=== PATIENT | female | born 1935 | race Caucasian/White ===

== ENCOUNTER 2017-01-06 12:11 | Observation (INO) | payer MEDICARE ==
--- OUTSIDE RECORDS SUMMARY | 2017-01-06 12:14 | XMS | Clinical Summary ---
:1935 Author Organization [facility] Address [address] [place] [address] Phone Care Team Providers Name Role Phone Javi Griggs Primary Care Provider tel Allergies Active Allergy Reactions Severity Noted Date Comments Sulfanilamide Current Medications Prescription Sig. Disp. Refills Start Date End Date Status acetaminophen-cod 05/24/2016 Active eine (TYLENOL WITH CODEINE #3) 300-30 mg per tablet citalopram 05/08/2016 Active (CeleXA) 20 MG tablet LORAZepam 04/11/2016 Active (ATIVAN) 0.5 MG tablet multivitamin Take 1 tablet by Active (THERAGRAN) mouth daily. tablet pantoprazole Take 40 mg by Active (PROTONIX) 40 MG mouth daily. EC tablet furosemide Take 1 tablet 30 tablet 6 06/09/2016 Active (LASIX) 20 mg (20 mg total) by 8 tabletIndications mouth daily. :SOB (shortness of breath),HOCM (hypertrophic obstructive cardiomyopathy) potassium Take 2 tablets 90 tablet 3 08/28/2016 Active chloride (K-DUR) (20meq) one day, 10 MEQ CR tablet then take 3 tablets (30meq) the next day, keep alternating CARTIA XT 180 mg TAKE 1 CAPSULE 90 capsule 2 10/23/2016 Active 24 hr capsule DAILY CARBIDOPA/LEVODOP Take by mouth. Active A (SINEMET ORAL) propranolol LA TAKE 1 CAPSULE 180 capsule 0 01/03/2017 Active (INDERAL LA) 160 TWICE A DAY mg 24 hr capsule propranolol LA TAKE 1 CAPSULE 180 capsule 0 10/05/2016 Discontinued (INDERAL LA) 160 TWICE A DAY 7 mg 24 hr capsule Active Problems Problem Noted Date Paroxysmal atrial fibrillation 11/27/2016 HOCM (hypertrophic obstructive cardiomyopathy) 08/28/2016 Hypertrophic cardiomyopathy 05/29/2016 Encounters Date Type Specialty Care Team Description 01/02/2017 Refill Cardiology Kraig Bates MD 12/20/2016 Hospital Encounter Procedural Leandrokerio, Paroxysmal atrial Cardiology MD Lei fibrillation 12/15/2016 Orders Only Cardiology Shilo, Paroxysmal atrial [place], [place] fibrillation (Primary Dx) 12/15/2016 Orders Only Cardiology Shilo, Paroxysmal atrial [place], [place] fibrillation (Primary Dx) 11/27/2016 Office Visit Cardiology Srinivas Wang MD cardiomyopathy (Primary Dx);Paroxysmal atrial fibrillation 11/27/2016 Office Visit Cardiology Kraig Bates MD cardiomyopathy (Primary Dx) 10/20/2016 Refill Cardiology Kraig Bates MD from Last 3 Months Family History Medical History Relation Name Comments Coronary artery disease Brother Hypertrophic cardiomyopathy Father Coronary artery disease Mother Coronary artery disease Sister Relation Name Status Comments Brother Father Mother Sister Social History Tobacco Use Types Packs/Day Years Used Date Never Smoker Smokeless Tobacco: Never Used Alcohol Use Drinks/Week oz/Week Comments No Sex Assigned at Date Recorded Not on file Last Filed Vital Signs Vital Sign Reading Time Taken Blood Pressure 139/62 11/27/2016 3:05 PM CDT Pulse 77 11/27/2016 3:05 PM CDT Temperature - - Respiratory Rate 18 11/27/2016 3:05 PM CDT Oxygen Saturation 98% 11/27/2016 3:05 PM CDT Inhaled Oxygen Concentration - - Weight 74.8 kg (165 lb) 11/27/2016 3:05 PM CDT Height 157.5 cm (5' 2") 11/27/2016 3:05 PM CDT Body Mass Index 30.18 11/27/2016 3:05 PM CDT Plan of Treatment Date Type Specialty Care Team Description 01/22/2017 Office Visit Cardiology Kraig Bates MD [address] [place], [place] [id number] 03/19/2017 Office Visit Cardiology Kraig Bates MD [address] [place], [place] [id number] Health Maintenance Due Date Last Done Comments ZOSTER VACCINE 1997 PNEUMOCOCCAL POLYSACCHARIDE VACCINE AGE 65 AND OVER 2002 PNEUMOCOCCAL-13 2002 INFLUENZA VACCINE 11/07/2016 Procedures Procedure Name Priority Date/Time Associated Diagnosis Comments CV PACEMAKER DEFIB ILR Routine 11/27/2016 12:00 AM INTERROGATION CDT from Last [address] heart w contrast preafib (12/20/2016 11:39 AM) Specimen Performing Laboratory [facility] [address] [place] [address] Narrative Nuclear Cardiology and Cardiac CT [address] [place] [address] CTA Chest Non-Coronary with Contrast Report Pat.Name:Inge COMBS.ID:[id number] .Date: 12/20/2016 Refer.MD:LEI WANG MD Exam Time: 11:16:00 AM Study Type:CTA Chest Non-Coronary W Contrast Height:62inWeight:160lb BSA: 1.74 m2 DOBAge:1935,81Y Sex: FEMALEHR: 80 bpm Nuclear Tech:SANDRA Alegria(N)(CT) CPT - 4: CTA Chest non coronary 47839 Nuclear Event ID:[id number] Order ID:[id number] Reason for Study:A-fib Ablation for Pulmonary Vein Mapping History / Clinical:Hypertrophic obstructive Cardiomyopathy, PPM, s/p alcohol ablation in 2010, Family history CAD, CTA w/CaCS 0 in 2007, Hypertension Procedures:CTA Chest Non- Coronary Race:C SUMMARY: Technique: IV contrast was administered and sequential 0.[address] cuts were obtained through the chest using [facility] scanner. Post-processing and 3D reconstruction were done using the marshallindex workstation. Interactive image viewing and volumetric display and analysis were also performed. CTA RESULTS Left Main: A normal sized4.4 mm artery which arises normally from the left sinus of Valsalva and divides into the left anterior descending and circumflex coronary arteries. No significant atherosclerotic plaque is present. Left anterior descending (LAD): A normal sized 2.8mm artery which wraps around the apex and gives off one diagonal branch. No significant atherosclerotic plaque is present. The first diagonal is a 1.8 mm artery which has no significant atherosclerotic plaque. Left circumflex: A normal sized 2.8 mm non-dominant artery which gives off two major obtuse marginal arteries before terminating in the AV groove. No significant atherosclerotic plaque is present. The first obtuse marginal is a 2.2 mm bifurcating artery which has no significant atherosclerotic plaque. The second obtuse marginal is a 1.9 mm artery which has no significant atherosclerotic plaque. Right coronary artery: A normal sized 3.3 mm dominant artery which arises normally from the right sinus of Valsalva and gives off several right ventricular branches, the posterior descending artery and the posterolateral artery.Mild calcified atherosclerotic plaque is present in the proximal segment but without significant stenosis. The posterior descending is a 1.0 mm artery which has no significant atherosclerotic plaque. The posterolateral branch is a 1.6 mm artery which has no significant atherosclerotic plaque. Stents: None. Bypass Grafts: None. Pulmonary Arteries: Normal pulmonary artery sizes with no proximal thrombus identified. Left Atrial and Pulmonary Vein(PV) Dimensions: Left atrial size (A-P diameter) 4.3 cm. LA volume 105 ml. Variant PV anatomy. Left superior PV16 mm. Left inferior PV16 mm. Right superior PV16 mm. Right middle PV 6 mm. Right inferior PV12 mm. Right top pulmonary vein noted. There is no evidence of the left atrial appendage clot. Patent foramen ovale. Left Ventricular Valve Morphology/Function: LV septal thickness 13 mm. Mild left ventricular hypertrophy. LV end-systolic volume 64 ml. Aortic valve is tri-leaflet and there is no evidence of stenosis. Trace aortic regurgitation. Mitral valve is normal without significant regurgitation. Mild mitral annular calcification. Thoracic Aortic Dimensions: No aortic aneurysm or dissection is seen. Aortic root: 3.4 cm. Sinotubular junction 3.0 cm. Mid ascending thoracic aorta 3.5 cm. Descending thoracic aorta 2.2 cm. Atherosclerotic changes noted in the descending thoracic aorta. Pericardium: No pericardial effusion or pericardial thickening. Non-Cardiac Findings: Right atrial and ventricular leads noted. Small hiatal hernia. Surgical janine noted in the upper abdomen. Large liver cyst. CONCLUSION CT coronary angiography shows mild coronary atherosclerosis but no significant coronary artery stenosis. Variant PV anatomy. There is no evidence of left atrial appendage thrombus. Patent foramen ovale. STUDY QUALITY The study quality is good. COMMENTS: None. The above report was based on a dedicated Cardiovascular CTA Protocol and interpreted by a Head Butler.Should a more comprehensive assessment of non-cardiovascular findings be desired, please consult a radiologist.These images are available in the [facility] [employer] PACS system. Signed 12/20/2016 01:45 PM Randolph Sharif MD Procedure Note Interface, Radiology Results In - 12/20/2016 1:45 PM CDT Nuclear Cardiology and Cardiac CT [address] [place] [address] CTA Chest Non-Coronary with Contrast Report Pat.Name: ELISEO COMBS.ID: [id number] .Date: 12/20/2016 Refer.MD: LEI WANG MD Exam Time: 11:16:00 AM Study Type:CTA Chest Non-Coronary W Contrast Height: 62in Weight: 160lb BSA: 1.74 m2 Age: 14 1935,81Y Sex: FEMALE HR: 80 bpm Nuclear Tech:SANDRA Alegria(N)(CT) CPT - 4: CTA Chest non coronary 68468 Nuclear Event ID:[id number] Order ID: [id number] Reason for Study:A-fib Ablation for Pulmonary Vein Mapping History / Clinical:Hypertrophic obstructive Cardiomyopathy, PPM, s/p alcohol ablation in 2010, Family history CAD, CTA w/CaCS 0 in 2007, Hypertension Procedures:CTA Chest Non- Coronary Race: C SUMMARY: Technique: IV contrast was administered and sequential 0.[address] cuts were obtained through the chest using the Siemens Somatom Force CT scanner. Post-processing and 3D reconstruction were done using the marshallindex workstation. Interactive image viewing and volumetric display and analysis were also performed. CTA RESULTS Left Main: A normal sized 4.4 mm artery which arises normally from the left sinus of Valsalva and divides into the left anterior descending and circumflex coronary arteries. No significant atherosclerotic plaque is present. Left anterior descending (LAD): A normal sized 2.8mm artery which wraps around the apex and gives off one diagonal branch. No significant atherosclerotic plaque is present. The first diagonal is a 1.8 mm artery which has no significant atherosclerotic plaque. Left circumflex: A normal sized 2.8 mm non-dominant artery which gives off two major obtuse marginal arteries before terminating in the AV groove. No significant atherosclerotic plaque is present. The first obtuse marginal is a 2.2 mm bifurcating artery which has no significant atherosclerotic plaque. The second obtuse marginal is a 1.9 mm artery which has no significant atherosclerotic plaque. Right coronary artery: A normal sized 3.3 mm dominant artery which arises normally from the right sinus of Valsalva and gives off several right ventricular branches, the posterior descending artery and the posterolateral artery. Mild calcified atherosclerotic plaque is present in the proximal segment but without significant stenosis. The posterior descending is a 1.0 mm artery which has no significant atherosclerotic plaque. The posterolateral branch is a 1.6 mm artery which has no significant atherosclerotic plaque. Stents: None. Bypass Grafts: None. Pulmonary Arteries: Normal pulmonary artery sizes with no proximal thrombus identified. Left Atrial and Pulmonary Vein (PV) Dimensions: Left atrial size (A-P diameter) 4.3 cm. LA volume 105 ml. Variant PV anatomy. Left superior PV16 mm. Left inferior PV16 mm. Right superior PV16 mm. Right middle PV 6 mm. Right inferior PV12 mm. Right top pulmonary vein noted. There is no evidence of the left atrial appendage clot. Patent foramen ovale. Left Ventricular Valve Morphology/Function: LV septal thickness 13 mm. Mild left ventricular hypertrophy. LV end-systolic volume 64 ml. Aortic valve is tri-leaflet and there is no evidence of stenosis. Trace aortic regurgitation. Mitral valve is normal without significant regurgitation. Mild mitral annular calcification. Thoracic Aortic Dimensions: No aortic aneurysm or dissection is seen. Aortic root: 3.4 cm. Sinotubular junction 3.0 cm. Mid ascending thoracic aorta 3.5 cm. Descending thoracic aorta 2.2 cm. Atherosclerotic changes noted in the descending thoracic aorta. Pericardium: No pericardial effusion or pericardial thickening. Non-Cardiac Findings: Right atrial and ventricular leads noted. Small hiatal hernia. Surgical janine noted in the upper abdomen. Large liver cyst. CONCLUSION CT coronary angiography shows mild coronary atherosclerosis but no significant coronary artery stenosis. Variant PV anatomy. There is no evidence of left atrial appendage thrombus. Patent foramen ovale. STUDY QUALITY The study quality is good. COMMENTS: None. The above report was based on a dedicated Cardiovascular CTA Protocol and interpreted by a Head Butler. Should a more comprehensive assessment of non-cardiovascular findings be desired, please consult a radiologist. These images are available in the [facility] [employer] PACS system. Signed 12/20/2016 01:45 PM Randolph Sharif MD ECG 12 lead (11/27/2016 2:15 PM) Component Value Ref Range Ventricular rate 63 Atrial rate 63 FL interval 164 QRSD interval 128 QT interval 488 QTC interval 499 P axis 1 58 QRS axis 1 64 T wave axis 109 EKG impression Normal sinus rhythm-Left bundle branch block-Abnormal ECG- Specimen Performing Laboratory [facility] [address] [facility] [place] [address] CV pacemaker defib or ilr interrogation (11/27/2016)from Last 3 Months Insurance Payer Benefit Plan / Group Subscriber ID Type Phone Address [employer] MED[employer]ARE AETNA MEDICARE HMO/PPO [facility] [id number] O Work: [id number] [phone] [place] [address] Home: [phone] [facility]
[2017-01-06 13:27] LABS: #Eosinphils 0.3 thou/uL (0.0-0.7); #Monocytes 0.4 thou/uL (0.11-0.59); #Neutrophils 5.8 thou/uL (1.40-6.50); %Basophils 0.3 % (0.0-1.0); %Eosinophils 4.6 % (0.0-10.0); %Lymphocytes 13.2 % (21.0-51.0); %Monocytes 5.2 % (0.0-10.0); Hematocrit 33.2 % (36.0-47.0); Mean Platelet Volume 6.5 fL (7.4-10.4); Red Blood Cell (RBC) Count 3.45 mill/uL (4.20-5.40); White Blood Cell (WBC) Count 7.5 thou/uL (4.8-10.8)
[2017-01-06 13:48] LABS: ALT (SGPT) Less than 7 U/L (8-55); AST (SGOT) 16 U/L (5-34); Alkaline Phosphatase 95 U/L (40-150); Anion Gap 15 mmol/L (10-20); BUN (Urea Nitrogen) 30 mg/dL (9.8-20.1); Bilirubin, Total 0.7 mg/dL (0.2-1.2); Calc. Creatinine Clearance 0 mL/min (70-130); Calcium 10.1 mg/dL (7.8-10.44); Carbon Dioxide 23 mmol/L (23-31); Chloride 103 mmol/L (98-107); Estimated GFR-MDRD 31; Globulin 3.7 g/dL (2.4-3.5); Protein, Total 6.9 g/dL (6.0-8.3)
--- NOTE | 2017-01-06 14:48 | RAD ---
CHEST 1 VIEW: Date: 01/06/17 HISTORY: Shortness of breath. COMPARISON: Chest 1 view dated 06/11/16. FINDINGS: Lungs are clear. No pneumothorax or effusion. Cardiac silhouette and mediastinal contour normal. Dual lead pacer. Left upper quadrant surgical clips. IMPRESSION: No acute cardiopulmonary process. POS: [facility]
[2017-01-06] MEDS ORDERED: Furosemide 40 MG/4 ML VIAL ONE (15:31)
[2017-01-06] MEDS ORDERED: Acetaminophen 325 MG TAB PO PRN (16:29)
[2017-01-06] MEDS ORDERED: Diabetic Tussin 200 MG/10 ML UDCUP PO PRN (16:29)
[2017-01-06] MEDS ORDERED: Eucerin (Mineral Oil/Petrolatum,White) 30 gm Jar TOP PRN (16:29)
[2017-01-06] MEDS ORDERED: Milk Of Magnesia 30 ML UDCUP PO PRN (16:29)
[2017-01-06] MEDS ORDERED: Mag-Al 1200 mg/1200 mg/30 ML UDCUP PO PRN (16:29)
[2017-01-06] MEDS ORDERED: Loperamide HCl 2 MG CAP PO PRN (16:29)
[2017-01-06] MEDS ORDERED: Ondansetron HCl/PF 4 MG/2 ML Vial IVP PRN (16:29)
[2017-01-06] MEDS ORDERED: Ondansetron ODT 4 MG TAB PO PRN (16:29)
[2017-01-06] MEDS ORDERED: Zolpidem Tartrate 5 MG TAB PO PRN (16:29)
[2017-01-06] MEDS ORDERED: HYDROcodone/Acetaminophen 5/325 mg Tablet PO PRN (16:29)
[2017-01-06] MEDS ORDERED: Sodium Chloride 0.65% Nasal 44 ML BOT EA NARE PRN (16:29)
[2017-01-06] MEDS ORDERED: Lorazepam 1 MG TAB PO PRN (16:29)
[2017-01-06] MEDS ORDERED: Loratadine 10 MG TAB PO PRN (16:29)
[2017-01-06] MEDS ORDERED: Senokot 8.6 MG TAB PO PRN (16:29)
--- NOTE | 2017-01-06 16:32 | HP ---
DATE OF SERVICE: 01/06/2017 PRIMARY CARE PHYSICIAN: Dr. Helene Verma in [place], [place]. REASON FOR ADMISSION: Dyspnea. HISTORY OF PRESENT ILLNESS: A 81-year-old female with a history of hypertension, hypertrophic cardi omyopathy and atrial fibrillation who came to the emergency room for evaluation of dyspnea. Patient reports that she was recently admitted to [facility] where they treated her with the IV Lasix. Even after IV Lasix treatment, patient is not feeling normal. She feels her shortness of breath wi th exertion. She does report some orthopnea. She denies any lower extremity edema. She denies any PND. She denies any fever, cough or hemoptysis. She denies any calf tenderness. She denies any d izziness, palpitation. She denies any sick exposures. She denies any recent travel. Patient denies any chest pain, palpitations or syncope. This patient had routine evaluation in the emergency room with a normal chest x-ray and normal CBC. Her BNP was slightly elevated and her trop onin was negative. At this point, patient is being admitted to telemetry floor for observation for dyspnea evaluation. Patient denies any UTI symptoms. She denies any constipation, diarrhea. She denies any abdominal p ain. She denies any headache. She denies any focal motor weakness. PAST MEDICAL HISTORY: Hypertrophic cardiomyopathy, hypertension, paroxysmal atrial fibrillation, hi story of GI bleeding, history of pacemaker placement with the replacement in 2010, history of recurr ent urinary tract infection, history of nephrolithiasis, history of left lower extremity deep vein t hrombosis in past. PAST SURGICAL HISTORY: Appendicectomy in 1953, hiatal hernia repair in 1976, partial hysterectomy i n 1966, cholecystectomy in 1976, back surgery in 1972. Staple to her stomach in 1980, pacemaker isael cement in 1992, ablation for hypertrophic cardiomyopathy in 2001, ablation for AFib in 2004, generat or for pacemaker was changed in 2010, rotator cuff surgery in 2010, EGD for GI bleeding twice in , intraarticular steroid injection in shoulder in 2013. ALLERGIES: SULFA DRUGS gives hives. SOCIAL HISTORY: Patient currently lives at home with the family. No history of tobacco, alcohol or illicit drug abuse. FAMILY HISTORY: Father also had hypertrophic cardiomyopathy. REVIEW OF SYSTEMS: The following complete review of systems was negative, unless otherwise mentioned in the HPI or below: Constitutional: Weight loss or gain, ability to conduct usual activities. Skin: Rash, itching. E yes: Double vision, pain. ENT/Mouth: Nose bleeding, neck stiffness, pain, tenderness. Cardiovasc ular: Palpitations, dyspnea on exertion, orthopnea. Respiratory: Shortness of breath, wheezing, c ough, hemoptysis, fever or night sweats. Gastrointestinal: Poor appetite, abdominal pain, heartbur n, nausea, vomiting, constipation, or diarrhea. Genitourinary: Urgency, frequency, dysuria, noctur ia. Musculoskeletal: Pain, swelling. Neurologic/Psychiatric: Anxiety, depression. Allergy/Immun ologic: Skin rash, bleeding tendency. Please see my HPI for pertinent positives and negatives. Al l other review of systems reviewed and negative except as mentioned in the HPI. PAST PSYCHIATRIC HISTORY: Anxiety and depression. CURRENT HOME MEDICATIONS: Celexa 20 mg p.o. daily, Aldactone 25 mg p.o. daily, Zaroxolyn 5 mg p.o. daily, Cardizem-CD 180 mg p.o. daily, Lasix 20 mg p.o. daily, lorazepam 0.5 mg p.o. daily, Protonix 40 mg p.o. daily, potassium chloride 20 mEq p.o. daily, Inderal 160 mg twice daily, Sinemet 25/100 t wo tablets twice daily. EMERGENCY ROOM COURSE: Patient is given Lasix 40 mg IV one time dose. PHYSICAL EXAMINATION: VITAL SIGNS: Currently, blood pressure 103/49, pulse 82, respiratory rate 20, temperature 98.0, sat uration 98% on room air, weight 72.5 kilograms. GENERAL: Patient is currently alert, awake on room air. No obvious acute distress, able to talk in full sentences. HEENT: Head: Normocephalic, atraumatic. Eyes: Pupils round, reactive to light. Extraocular musc les intact. ENT: Oropharynx within normal limits. Moist mucous membranes. No oral lesions. No pharyngeal cary thema, no exudate. NECK: Supple. Range of motion is normal. No meningeal signs of irritation. LUNGS: Air entry reduced basally, few basilar rales noted. CARDIAC: S1, S2 regular. No obvious murmur, no gallop, no rub. ABDOMEN: Soft, bowel sounds present, nontender, nondistended. No organomegaly, no mass, no suprapu bic tenderness. BACK: Unremarkable, no CVA tenderness. EXTREMITIES: Upper extremity passive movement of all joints are normal. Lower extremity trace bila teral lower extremity pitting edema noted. NEUROLOGIC: Nonfocal examination. The patient moves all 4 limbs. Plantar bilateral flexor. PSYCHIATRIC: Normal affect. SKIN: No skin rash. HEMATOLOGIC: No lymphadenopathy. SIGNIFICANT LABS: EKG based on my review reveals normal sinus rhythm, incomplete left bundle branch block pattern. Chest x-ray showing mild haziness, no consolidation, no effusion. CBC: WBC 7.5, hemoglobin 11.1, platelet 227. BMP shows sodium 137, potassium 3.8, chloride 103, ca rbon dioxide 23, BUN 30, creatinine 1.59, glucose 114, calcium 10.1. LFT: AST 16, ALT less than 7, and alkaline phosphatase 95, albumin 3.2, CK-MB 0.5, troponin I 0.020 . BNP 135.9. ASSESSMENT AND PLAN: 1. Dyspnea. At this point, most likely the patient has hypertrophic cardiomyopathy and diastolic h eart failure. This patient most likely has diastolic heart failure acute on chronic, underlying pul monary etiology needs to be excluded. At this point, we will do echocardiography to assess ejection fraction and other structural abnormality. We will treat her with Lasix 20 mg IV b.i.d. We will r estrict fluid restriction about 1500 mL per day and we will also try to do bedside pulmonary functio n test if possible to rule out any pulmonary pathology. 2. Paroxysmal atrial fibrillation. We will continue Cardizem-CD 180 mg p.o. daily, Inderal 160 mg twice daily. The patient is not on any chronic anticoagulation therapy because of her risk for GI b leeding. 3. Anxiety with depression. We will continue lorazepam 0.5 mg daily, and Celexa 20 mg p.o. daily. 4. Gastroesophageal reflux disease. We will continue Protonix 40 mg p.o. daily. 5. Parkinson's disease. We will continue Sinemet 50/200 one tablet twice daily. 6. Chronic kidney disease stage 3. We will monitor renal function. We will avoid nephrotoxic agen ts. 7. Deep venous thrombosis prophylaxis. Sequential compression device boots. No Lovenox because we are expecting discharge in 24-48 hours. 8. Gastrointestinal prophylaxis, Protonix 40 mg p.o. daily. CODE STATUS: The patient is FULL CODE. Patient's daughter and son is surrogate decision maker. DISPOSITION: Plan based on clinical course likely within 24-48 hours.
[2017-01-06 16:55] LABS: Troponin I 0.028 ng/mL (< 0.028)
[2017-01-06 17:40] VITALS: BMI 29.3
[2017-01-06 18:39] LABS: Bilirubin Negative (Negative); Blood, Urine Negative (Negative); Glucose, Urine (Dipstick) Negative (Negative); Ketone, Urine Negative (Negative); Nitrite Negative (Negative); Protein, Urine (Dipstick) Negative (Neg-Trace); Urobilinogen 0.2 mg/dL (0.2-1.0)
[2017-01-06 18:42] LABS: Bacteria/HPF None Seen HPF (None Seen); Hyaline Casts/LPF 4-6 HYALINE CAST LPF (0-3 Hyaline); RBC/HPF 0-3 HPF (0-3); Squamous Epithelial None Seen HPF (0-3); WBC/HPF None Seen HPF (0-3)
[2017-01-06 20:14] LABS: Troponin I 0.013 ng/mL (< 0.028)
[2017-01-06] MEDS: Carbidopa/Levodopa CR 50-200 mg Tablet PO SCH (22:12)
[2017-01-07] MEDS ORDERED: Sodium Chloride 0.9% 10 ML ONE ×2 (04:34→08:23)
[2017-01-07 05:50] LABS: #Eosinphils 0.3 thou/uL (0.0-0.7); #Lymphocytes 0.9 thou/uL (1.20-3.40); #Monocytes 0.5 thou/uL (0.11-0.59); #Neutrophils 5.5 thou/uL (1.40-6.50); %Basophils 0.3 % (0.0-1.0); %Eosinophils 4.5 % (0.0-10.0); %Lymphocytes 12.8 % (21.0-51.0); %Monocytes 6.6 % (0.0-10.0); Hematocrit 32.3 % (36.0-47.0); Mean Platelet Volume 7.3 fL (7.4-10.4); Red Blood Cell (RBC) Count 3.33 mill/uL (4.20-5.40); White Blood Cell (WBC) Count 7.2 thou/uL (4.8-10.8)
[2017-01-07] MEDS ORDERED: Furosemide 20 MG/2 ML VIAL SLOW IVP SCH (06:00)
[2017-01-07 06:25] LABS: ALT (SGPT) Less than 7 U/L (8-55); AST (SGOT) 19 U/L (5-34); Alkaline Phosphatase 91 U/L (40-150); Anion Gap 14 mmol/L (10-20); BUN (Urea Nitrogen) 34 mg/dL (9.8-20.1); Bilirubin, Total 0.6 mg/dL (0.2-1.2); Calc. Creatinine Clearance 31 mL/min (70-130); Calcium 9.8 mg/dL (7.8-10.44); Carbon Dioxide 28 mmol/L (23-31); Chloride 98 mmol/L (98-107); Estimated GFR-MDRD 29; Globulin 3.8 g/dL (2.4-3.5); Protein, Total 6.9 g/dL (6.0-8.3); Uric Acid 9.9 mg/dL (2.6-6.0)
[2017-01-07] MEDS ORDERED: Spironolactone 25 MG TAB PO SCH (08:00)
[2017-01-07] MEDS ORDERED: Propranolol HCl LA 80 MG CAP PO SCH (09:00)
--- NOTE | 2017-01-07 10:23 | PDOC.PN ---
- Subjective Encounter Start Date: 01/07/17 Encounter Start Time: 07:40 -: old records requested/rev feels dyspnea, but she is on room air, no cough - Objective Resuscitation Status: Resuscitation Status FULL:Full Resuscitation MAR Reviewed: Yes Vital Signs & Weight: Vital Signs (12 hours) Temp Pulse Resp BP BP Pulse Ox 01/07/17 08:59 98.7 F 88 18 135/60 93 L 01/07/17 05:05 99.7 F H 91 20 118/58 L 95 01/07/17 04:51 93 L 01/07/17 04:00 99.7 F H 88 20 118/58 L 95 01/07/17 00:00 18 Weight Weight 157 lb 4.8 oz I&O: 01/06/17 01/07/17 01/08/17 06:59 06:59 06:59 Intake Total 532 Output Total 600 Balance -68 Result Diagrams: 01/07/17 05:22 01/07/17 05:22 EKG Reviewed by me: Yes Phys Exam - Physical Examination Constitutional: NAD HEENT: PERRLA, moist MMs, sclera anicteric Neck: no JVD, supple Respiratory: no wheezing, no rales, no rhonchi Cardiovascular: RRR, no significant murmur, no rub Gastrointestinal: soft, non-tender, no distention, positive bowel sounds Musculoskeletal: no edema, pulses present Neurological: non-focal, normal sensation, moves all 4 limbs Psychiatric: normal affect, A&O x 3 Skin: no rash, normal turgor Dx/Plan (1) Dyspnea Code(s): R06.00 - DYSPNEA, UNSPECIFIED Status: Acute (2) Chronic diastolic (congestive) heart failure Code(s): I50.32 - CHRONIC DIASTOLIC (CONGESTIVE) HEART FAILURE Status: Chronic (3) Paroxysmal atrial fibrillation Code(s): I48.0 - PAROXYSMAL ATRIAL FIBRILLATION Status: Chronic (4) Hypertrophic cardiomyopathy Code(s): I42.2 - OTHER HYPERTROPHIC CARDIOMYOPATHY Status: Chronic (5) Anxiety and depression Code(s): F41.8 - OTHER SPECIFIED ANXIETY DISORDERS Status: Chronic (6) CKD (chronic kidney disease) stage 3, GFR 30-59 ml/min Code(s): N18.3 - CHRONIC KIDNEY DISEASE, STAGE 3 (MODERATE) Status: Chronic - Plan cont current plan of care, plan discussed w/ family * will try to do stress test as a part of angina equivalent * will dc lasix today as pt is euvolemic and creatinine is rising * medication reviewed as below * symptomatic treatment. * possible discharge later today * PFT after discharge in can not be done here . Review of Systems - Review of Systems Constitutional: negative: Fever, Chills, Sweats, Weakness, Malaise, Other Eyes: negative: Pain, Vision Change, Conjunctivae Inflammation, Eyelid Inflammation, Redness, Other ENT: negative: Ear Pain, Ear Discharge, Nose Pain, Nose Discharge, Nose Congestion, Mouth Pain, Mouth Swelling, Throat Pain, Throat Swelling, Other Respiratory: Shortness of Breath, SOB with Excertion. negative: Cough, Dry, Hemoptysis, Pleuritic Pain, Sputum, Wheezing Cardiovascular: negative: Chest Pain, Palpitations, Orthopnea, Paroxysmal Noc. Dyspnea, Edema, Light Headedness, Other Gastrointestinal: negative: Nausea, Vomiting, Abdominal Pain, Diarrhea, Constipation, Melena, Hematochezia, Other Genitourinary: negative: Dysuria, Frequency, Incontinence, Hematuria, Retention , Other Musculoskeletal: negative: Neck Pain, Shoulder Pain, Arm Pain, Back Pain, Hand Pain, Leg Pain, Foot Pain, Other Skin: negative: Rash, Lesions, Colin, Bruising, Other - Medications/Allergies Allergies/Adverse Reactions: Allergies Allergy/AdvReac Type Severity Reaction Status Date / Time pregabalin [From Lyrica] Allergy Verified 01/06/17 17:06 Sulfa (Sulfonamide Allergy Verified 05/20/14 10:56 Antibiotics) tape plastic Allergy Uncoded 05/20/14 10:56 Medications: Current Medications Acetaminophen (Tylenol) 650 mg PO Q4H PRN PRN Reason: Headache/Fever or Pain Hydrocodone Bitart/Acetaminophen ([place] 5/325) 1 tab PO Q4H PRN PRN Reason: Moderate Pain (4-6) Al Hydroxide/Mg Hydroxide (Maalox) 30 ml PO Q6H PRN PRN Reason: Heartburn or Indigestion Albuterol/Ipratropium (Duoneb) 3 ml NEB [id number] PRN PRN Reason: SOB &/or Wheezing Aspirin (Aspirin Chewable) 81 mg PO DAILY [facility] Carbidopa/Levodopa (Sinemet Cr 50/200) 1 tab PO BID TALYA Last Admin: 01/06/17 22:12 Dose: 1 tab Citalopram Hydrobromide (Celexa) 20 mg PO DAILY TALYA Diltiazem HCl (Cardizem Cd) 180 mg PO DAILY TALYA Guaifenesin (Robitussin Sf) 200 mg PO Q4H PRN PRN Reason: Cough Hydralazine HCl (Apresoline) 10 mg SLOW IVP Q4H PRN PRN Reason: Systolic BP > 180 Loperamide HCl (Imodium) 2 mg PO PRN PRN PRN Reason: Diarrhea/Loose Stools Loratadine (Claritin) 10 mg PO DAILYPRN PRN PRN Reason: Sinus Symptoms Lorazepam (Ativan) 0.5 mg PO Q4H PRN PRN Reason: Anxiety/Agitation Magnesium Hydroxide (Milk Of Magnesium) 30 ml PO DAILYPRN PRN PRN Reason: Constipation Mineral Oil/White Petrolatum (Eucerin Cream) 0 gm TOP BIDPRN PRN PRN Reason: Dry Skin Ondansetron HCl (Zofran Odt) 4 mg PO Q6H PRN PRN Reason: Nausea/Vomiting Ondansetron HCl (Zofran) 4 mg IVP Q6H PRN PRN Reason: Nausea/Vomiting Propranolol HCl (Inderal La) 160 mg PO DAILY TALYA Senna (Senokot) 2 tab PO HSPRN PRN PRN Reason: Constipation Sodium Chloride ([place] Nasal [place] 0.65%) 0 ml EA NARE QIDPRN PRN PRN Reason: Nasal Congestion Spironolactone (Aldactone) 25 mg PO QAM-WM TALYA Zolpidem Tartrate (Ambien) 5 mg PO HSPRN PRN PRN Reason: Insomnia
[2017-01-07 12:18] VITALS: BP 119/56; TEMP 98
[2017-01-07] MEDS: Carbidopa/Levodopa CR 50-200 mg Tablet PO SCH (12:30)
--- NOTE | 2017-01-07 14:16 | NM ---
NUCLEAR MEDICINE CARDIAC STRESS TEST: HISTORY: Dyspnea. Pacemaker. Hypertension. Hypertrophic cardiomyopathy. COMPARISON: None. TECHNIQUE: Nuclear medicine cardiac stress test was performed with rest and stress after intravenous administra tion of 9.9 and 30 mCi technetium-99m sestamibi, respectively. The exam was performed using Lexiscan protocol. FINDINGS: No fixed defect or ischemia. There is dyskinesia of the septum. Ejection fraction calculated at 68%. IMPRESSION: 1. Dyskinesis of the septal wall may be from prior infarction. 2. No acute ischemia. 3. Normal ejection fraction of 68%. POS: VICENTA
--- NOTE | 2017-01-07 15:49 | DIS ---
DATE OF ADMISSION: 01/06/2017 DATE OF DISCHARGE: 01/07/2017 PRIMARY CARE PHYSICIAN: Dr. Verma in [place], [place]. DISCHARGE DISPOSITION: Home. PRIMARY DISCHARGE DIAGNOSIS: Dyspnea, multifactorial etiology. SECONDARY DISCHARGE DIAGNOSES: Anxiety and depression, chronic diastolic heart failure, hypertrophi c cardiomyopathy, chronic kidney disease stage 3, paroxysmal atrial fibrillation. PRIMARY PROCEDURE/OPERATION: None. RADIOLOGICAL INVESTIGATION: Stress test was negative for any ischemia. Echocardiography showed allyson stolic dysfunction. Chest x-ray was normal. SIGNIFICANT LABS: Hemoglobin 11.1, creatinine 1.69. Cardiac enzymes negative x3. BNP 135.9. Elec trolytes normal. Urinalysis normal. DISCHARGE MEDICATIONS: Patient will resume all her previous home medication, Tylenol 1 gram p.o. q. 6 hourly. p.r.n., Sinemet CR 50/200 1 capsule p.o. b.i.d., Omnicef 300 mg p.o. b.i.d., Celexa 20 mg p.o. daily, Cardizem CD 180 mg p.o. daily, Ativan 0.5 mg p.o. at bedtime, Zaroxolyn 5 mg p.o. daily p.r.n. for edema, multivitamin 1 tablet p.o. daily, Protonix 40 mg p.o. daily, Inderal LA 160 mg p.o . b.i.d., Aldactone 25 mg p.o. daily. CONTRAINDICATIONS: None. CODE STATUS: FULL CODE. INPATIENT CONSULTANTS: None. ALLERGIES: LYRICA and SULFA. DISCHARGE PLAN: Post hospital, the patient will follow up with primary care physician. HOSPITAL COURSE: A 81-year-old female who has underlying history of hypertrophic cardiomyopathy and chronic diastolic heart failure. She was recently admitted to the [facility] for CHF symptoms where she was treated with diuretic therapy and she was completely euvolemic. Still she was complai ricki of dyspnea and that is why she came to our emergency room for evaluation, considering angina eq uivalent and we did a stress test that came back negative. We did echocardiography, which showed di astolic dysfunction. This patient was treated with IV Lasix, but her creatinine was going up and th at is why we discontinued that medication and necessary patient instruction and patient education ab out the use of diuretic therapy with Zaroxolyn was given. This patient does have close followup meet ointment with Cardiology. We are not making any change in her home medications. The patient will f ollow up with primary care physician. Necessary patient education about heart failure is given. Ye luna is seen and examined at bedside today. Please see my progress note from today for further det ails. If the patient has continuous dyspnea, then she can have outpatient pulmonary function test a s well if needed.
[2017-01-07] MEDS ORDERED: Regadenoson 0.4 MG/5 ML SYRINGE ONE (16:31)
--- NOTE | 2017-01-13 12:58 | EKG ---
Test Reason : Blood Pressure : / mmHG Vent. Rate : 077 BPM Atrial Rate : 077 BPM P-R Int : 166 ms QRS Dur : 130 ms QT Int : 452 ms P-R-T Axes : 083 -13 127 degrees QTc Int : 511 ms Normal sinus rhythm Left bundle branch block Abnormal ECG Confirmed by DALTON DAVIS ([id number]), website/blog editor FLORIDA SANCHEZ ([id number]) on 01/13/2017 12:57:43 PM Referred By: Confirmed By:DALTON DAVIS
== END 2017-01-07 19:22 | disposition home or self-care (01) ==
LOC: ERS 12:11 → 2NO 16:32
PROVIDERS: ADMIT Internal Medicine; ATTEND Internal Medicine
DX: R06.09 Other forms of dyspnea (principal); F41.8 Other specified anxiety disorders; I42.2 Other hypertrophic cardiomyopathy; I48.0 Paroxysmal atrial fibrillation; I13.0 Hypertensive heart and chronic kidney disease with heart failure and stage 1 through stage 4 chronic kidney disease, or unspecified chronic kidney disease; N18.3 Chronic kidney disease, stage 3 (moderate); I50.32 Chronic diastolic (congestive) heart failure; Z88.2 Allergy status to sulfonamides; Z88.8 Allergy status to other drugs, medicaments and biological substances; Z91.048 Other nonmedicinal substance allergy status; Z79.899 Other long term (current) drug therapy; Z95.0 Presence of cardiac pacemaker; Z90.49 Acquired absence of other specified parts of digestive tract; Z98.890 Other specified postprocedural states; Z87.440 Personal history of urinary (tract) infections; Z87.442 Personal history of urinary calculi; Z82.49 Family history of ischemic heart disease and other diseases of the circulatory system
CPT/HCPCS: 71010; 78452; 80053 ×2; 81001; 82553; 83880; 84484 ×2; 84550; 85025 ×2; 93005; 93017; 93306; 94760; 96374; 96376; 99285; A9500; G0378; 36415; A4216; J1940; J2785

== ENCOUNTER 2017-05-17 17:51 | Emergency (ER) | payer MEDICARE ==
[~2017-05-17 17:51] MED LIST: ISOVUE-370 76%-LOCM 1 ML ONE
[2017-05-17 18:36] LABS: #Eosinphils 0.2 thou/uL (0.0-0.7); #Lymphocytes 1.1 thou/uL (1.20-3.40); #Monocytes 0.6 thou/uL (0.11-0.59); #Neutrophils 3.9 thou/uL (1.40-6.50); %Eosinophils 3.8 % (0.0-10.0); %Lymphocytes 19.5 % (21.0-51.0); %Monocytes 9.7 % (0.0-10.0); %Neutrophils 66.9 % (42.0-75.0); Hemoglobin 9.7 g/dL (12.0-16.0); Mean Corpuscular HGB CONC 32.8 g/dL (32.0-36.0); Mean Corpuscular Hemoglobin 30.3 pg (27.0-31.0); Mean Corpuscular Volume 92.4 fl (81.0-99.0); Mean Platelet Volume 6.7 fL (7.4-10.4); Platelet Count 308 thou/uL (130-400); RBC Distribution Width 13.3 % (11.5-14.5); White Blood Cell (WBC) Count 5.8 thou/uL (4.8-10.8)
[2017-05-17 19:00] LABS: ALT (SGPT) 16 U/L (8-55); AST (SGOT) 25 U/L (5-34); Albumin 3.3 g/dL (3.4-4.8); Alkaline Phosphatase 87 U/L (40-150); Anion Gap 14 mmol/L (10-20); BUN (Urea Nitrogen) 12 mg/dL (9.8-20.1); Bilirubin, Total 0.5 mg/dL (0.2-1.2); Calc. Creatinine Clearance 0 mL/min (70-130); Calcium 8.7 mg/dL (7.8-10.44); Carbon Dioxide 24 mmol/L (23-31); Chloride 101 mmol/L (98-107); Estimated GFR-MDRD 57; Globulin 3.6 g/dL (2.4-3.5); Glucose 91 mg/dL (83-110); Potassium 4.2 mmol/L (3.5-5.1); Protein, Total 6.9 g/dL (6.0-8.3); Sodium 135 mmol/L (136-145)
[2017-05-17 19:03] LABS: CKMB 1.5 ng/mL (0-6.6)
--- NOTE | 2017-05-17 19:11 | RAD ---
PORTABLE CHEST: 05/17/17 HISTORY: Chest pain. COMPARISON: 01/06/17. Abnormal opacification of the left lung base is present suggesting left effusion and left basilar ate lectasis and/or consolidation. Right lung appears clear and well aerated. Pacemaker leads are unchanged. Cardiomegaly again noted. IMPRESSION: New opacification of the left lung base has occurred since the 01/06/17 exam as described above. POS: VICENTA
--- NOTE | 2017-05-17 20:12 | CT ---
CT PULMONARY ANGIO OF CHEST WITH CONTRAST 05/17/17 Multiple axial tomograms obtained through chest with pulmonary angio protocol with multiplanar recons tructions and 3D postprocessing. HISTORY: Shortness of breath. Chest pain. Chest x-ray shows a new left basilar opacification. Compared to a CT abdomen 06/11/16. FINDINGS: The pulmonary arteries show adequate opacification. No evidence of pulmonary embolus. Thoracic aorta is unremarkable with no evidence of dissection. Moderate sized left pleural effusion. Left basilar atelectasis and/or infiltrate. There is some mild right lung atelectasis. Very small right effusion. Mediastinum unremarkable. 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 There is a cystic lesion in the upper right lobe of the liver which has irregular sh ape and is stable from the prior CT of 06/11/16. IMPRESSION: 1. Small to moderate left pleural effusion with left basilar atelectasis and/or consolidation. 2. No evidence of pulmonary embolus. POS: VICENTA
[2017-05-17] MEDS ORDERED: Ondansetron HCl/PF 4 MG/2 ML Vial ONE (20:50)
[2017-05-17 22:03] LABS: Troponin I 0.118 ng/mL (< 0.028)
[2017-05-18 00:58] LABS: Troponin I 0.117 ng/mL (< 0.028)
== END 2017-05-18 02:03 | disposition short-term general hospital (02) ==
LOC: ERS 17:51
DX: I21.4 Non-ST elevation (NSTEMI) myocardial infarction (principal); I10 Essential (primary) hypertension; I48.91 Unspecified atrial fibrillation; Z79.82 Long term (current) use of aspirin; Z79.01 Long term (current) use of anticoagulants; Z79.899 Other long term (current) drug therapy
CPT/HCPCS: 36415; 71045; 71275; 80053; 82553; 84484; 85025; 93005; 96374; 96375; J2270; J2405

== ENCOUNTER 2019-12-15 19:47 | Inpatient (IN) | payer MEDICARE, OTHER ==
[2019-12-15] MEDS ORDERED: Morphine 4 MG/ML VIAL ONE (21:01)
[2019-12-15] MEDS ORDERED: Ondansetron PF 4 MG/2 ML Vial ONE (21:01)
--- NOTE | 2019-12-15 21:20 | CT ---
CT OF CHEST, ABDOMEN, AND PELVIS PERFORMED WITHOUT CONTRAST ENHANCEMENT: History: Patient is currently on Eliquis for atrial fibrillation. History of DVT. Chest pain and wors ening shortness of breath. History of chronic renal disease. Also here for evaluation of aorta. Comparison: CT chest 05-17-17, CT abdomen/pelvis 06-11-2016. FINDINGS: The lungs are clear of any infiltrative process. No pulmonary nodules or pleural effusions. Subtle nodularity to the thyroid gland is noted. No significant mediastinal adenopathy. The thoracic aorta is normal in caliber. CT OF ABDOMEN PERFORMED WITHOUT CONTRAST ENHANCEMENT: Post operative changes of the stomach are again noted. A large cystic lesion involving the liver princess g the dome of the liver has definitely increased in size. On the 2016 study it measured in the 6.8 cm range. It now measures 11.6 cm. There is some intrahepatic ductal dilatation of the lateral segment of the left lobe of the liver. This is probably just related to the extrinsic impression related to t his large cystic lesion. Smaller cysts involving the more inferior aspect of the right lobe is stable . The spleen and pancreas regions are unremarkable. Patient has a history of cholecystectomy. Right and left adrenal glands are normal. 5-6 mm nonobstructing right renal calculus is present. No o bstruction of either kidney. Both kidneys show cortical thinning. This is more pronounced on the left kidney which is also atrophic in appearance. The abdominal aorta is normal in caliber. No significan t periaortic or mesenteric adenopathy. CT OF PELVIS PERFORMED WITHOUT CONTRAST ENHANCEMENT: No adenopathy, mass or free fluid. Post operative changes of the right SI joint are seen. There is scoliotic change to the spine. IMPRESSION: 1. No evidence of aortic aneurysm. 2. Significant enlargement to the cystic lesion involving the right lobe of the liver and medial segm ent of the left lobe. It measures greater than 11 cm on today's study as compared to 6.8 cm on the exam. It is also causing some biliary obstruction to the lateral segment of the left lobe of the l iver, probably just on the basis of extrinsic compression. This could represent a simple enlarging he patic cyst. A biliary cyst adenoma would be another consideration. Cyst adenocarcinoma would be consi dered unlikely as I do not see any nodularity. A CT using renal mass protocol would be required for m ore accurate assessment. 3. Post op changes of the stomach. 4. Nonobstructing right renal calculus. 5. No evidence of aortic aneurysm. POS: OFF
[2019-12-15 21:45] LABS: INR-International Normal Ratio 1.2; PTT 30.9 sec (22.9-36.1); Prothrombin Time 15.1 sec (12.0-14.7)
--- NOTE | 2019-12-15 21:47 | PDOC.FPRHP ---
- History of Present Illness Chief Complaint: CP History of Present Illness: Pt is an 84 y/o F who presents today with CP. She states that she has been having exertional CP for the past two weeks with weakness and states that today she was having increasing pressure like pain in the center of her chest without radiation that did not mohini with rest. She has had CP in the past, however, it usually goes away with rest. She admits to a headache but denied SOB. She currently lives with her two daughters and son in law at home. ED Course: morphine x 1, fentanyl x 1, 1L NS, zofran x1 - Allergies/Adverse Reactions Allergies Allergy/AdvReac Type Severity Reaction Status Date / Time nitroglycerin Allergy Verified 12/16/19 02:04 [From Nitro-Bid] pregabalin [From Lyrica] Allergy Verified 12/16/19 02:04 Sulfa (Sulfonamide Allergy Verified 12/16/19 02:04 Antibiotics) tape plastic Allergy Uncoded 12/16/19 02:04 - Home Medications Medication Instructions Recorded Confirmed Type Diltiazem HCl [Diltiazem 24Hr CD] 180 mg PO DAILY 05/12/14 12/15/19 History Multivitamin [Multi-Vitamin Daily] 1 tablet PO DAILY 05/12/14 12/15/19 History Propranolol HCl [Propranolol HCl 40 mg PO BID 05/12/14 12/16/19 History ER] Pantoprazole [Protonix] 40 mg PO DAILY #0 tab 05/13/14 12/15/19 Rx Spironolactone 12.5 mg PO DAILY 01/06/17 12/16/19 History Aspirin 81 mg PO HS 12/15/19 12/15/19 History Torsemide 40 mg PO BID 12/15/19 12/16/19 History Apixaban [Eliquis] 2.5 mg PO BID 12/16/19 12/16/19 History DULoxetine HCl [Cymbalta] 90 mg PO DAILY 12/16/19 12/16/19 History Nitrofurantoin Monohyd/M-Cryst 100 mg PO QPM 12/16/19 12/16/19 History [Macrobid] Primidone [Mysoline] 50 mg PO DAILY 12/16/19 12/16/19 History clonazePAM [Clonazepam] 1 mg PO HS 12/16/19 12/16/19 History - History PMHx: -CHF -Cardiomyopathy -Afib -resting tremor -oxygen requirement -chronic liver cyst, stable PSHx: -appendectomy -cholecystecomy FHx: -father: CAD -mother: CAD, DM Social: -no tobacco, etoh, drug use, lives with daughters - Review of Systems General: reports: fatigue. denies: fever/chills, weight/appetite/sleep changes , night sweats ENT: denies: nasal congestion Respiratory: reports: shortness of breath. denies: cough, congestion Cardiovascular: reports: chest pain. denies: palpitation, edema Gastrointestinal: reports: nausea. denies: vomiting, diarrhea, constipation, abdominal pain Genitourinary: denies: dysuria, polyuria Skin: denies: rashes, lesions, jaundice Musculoskeletal: denies: pain, tenderness, stiffness Neurological: reports: weakness. denies: numbness, syncope Psychological: denies: anxiety, depression - Vital signs BP: 119/53, MAP: 75, Pulse: 84, Resp: 17, Pain: 8, O2 sat: 100 on (3L Oxygen), Time: 12/15/2019 19:57. - Physical Exam Constitutional: NAD, awake, alert and oriented HEENT: PERRLA Neck: supple Heart: RRR, normal S1/S2, pulses present, other (2/6 systolic murmur) Lungs: no respiratory distress, no rales/rhonchi, no retractions, other (poor inspiratory effort) Abdomen: soft, non-tender, bowel sounds present, no masses/distention Musculoskeletal: normal structure, normal tone Neurological: no focal deficit, CN II-XII intact Skin: no rash/lesions, good turgor, capillary refill <2 seconds Heme/Lymphatic: no unusual bruising or bleeding, no purpura Psychiatric: normal mood and affect, good judgment and insight, intact recent and remote memory FMR H&P: Results - Labs Result Diagrams: 12/15/19 22:47 12/16/19 07:58 - EKG Interpretation EKG: old LBBB, NSR - Radiology Interpretation Chest x-ray Status: report reviewed by me (no acute cardiopulmonary process) CT scan - abdomen Status: report reviewed by me (no evidence of aortic aneurysm, enlargement of cystic lesion involved right lobe of liver and medical segment of left lobe. post op chages to stomach, nonobstructing right renal calculus) FMR H&P: A/P - Plan ## Unstable Angina -original EKG showed ST depressions of V2,3 -initial trop 0.03-->0.057, trend trop -admit to tele -cardiology consulted from ED -NPO @ 12AM in anticipation of cath in AM ## CARISSA vs. CKD -unsure of baseline -BUN/Hook And Eye Attacher 76/2.49 -FeNa ## Hypokalemia -K 2.7 -repleating -repeat labs, Mg ## Atrial Fibrillation -has pacemaker -continue home meds -holding eliquis due to heparin ## CHF -continue home medications -strict I/O -daily weights -last echo in 2016 showed EF 55-60% with diastolic dysfunction -has hx of cardiomyopathy ## Anxiety/Depression -restarted home meds CODE: DNR-DNI DIET: HH VTE: Heparin PCP: CC Dispo: admit to telemetry FMR H&P: Upper Level - Plan Date/Time: 12/15/192145 Rah Corcoran PGY3, have evaluated this patient and agree with findings/plan as outlined by consultants intern resident. Pertinent changes/additions are listed here. 84F with pmh of hypertrophic cardiomyopathy and afib presents with 3 day hx of substernal CP of unspecified character and severity with no radiation that is relieved by rest/nitro/morphine and exacerbated by exertion. she has never had a stent. On exam she is on 3L O2 (baseline from unknown pulmonary issue) but otherwise vitals wnl and stable. Cardiopulm exam is wnl. A/P Unstable Angina A- Pt is hemodynamically stable. She was still in pain after 12mg morphine, cards (Zach) was consulted from ED and recommended heparin drip and admission to tele. Pain resolved after an additional 4mg morphine. EKG is baseline from 2017 showing LBBB. trop indeterminate x2 trending up to .05 P- admit to tele, inpatient -heparin drip -trend trops -FLP -cards consult, appreciate recs -npo at midnight for potential cath Hypokalemia A- K 2.7 on admission P- replace and recheck in AM CARISSA vs. CKD A- pt reports baseline Cr is unknown. Here it is 2.49. Her last Cr in our system was 0.98 in 2018. P- will get labs to calculate FeNa Hypertrophic cardiomyopathy A- per chart review. Pt reports she has had many cardiac tests recently but does not know what they were or the results. 2017 stress showed septal wall dyskinesis P- f/u cards recs Anemia A- normocytic, unsure if chronic P- iron studies, B12, RBC folate Afib A- stable, in NSR currently. P- continue home meds except eliquis, will restart potentially after cath and heparin is stopped HTN -controlled, home meds Liver cyst -seen on CT, chronic and followed by PCP CODE: DNAR IVF: KVO Diet: HH, npo at midnight Ppx: Th heparin PCP: in [facility] dispo: inpatient, anticipate more than two midnights Addendum - Attending - Attending Attestation Date/Time: 12/15/19 [id number] I personally evaluated the patient and discussed the management with Dr. Tellez and Dr. Duvall I agree with the History, Examination, Assessment and Plan documented above with any addition or exceptions noted below. 84 yo female with hx of CV dz present with progressive CP from activity to rest. Dx with unstable angina. Trop indeterminate. EKG with nonspecific changes but initially with ST segment depression briefly. Cards consulted. Currently on Heparin drip. Pain improved with nitro, narcotics, and O2. Continue to monitor closely in IMCU. Cards to evaluate in AM. Trend labs. Continue ASA, Statin and beta lester. Adjust home meds as needed. Power
[2019-12-15 21:49] LABS: CKMB 1.1 ng/mL (0-6.6)
[2019-12-15] MEDS ORDERED: Heparin 25,000 units/D5W 500 ML ONE (22:12)
[2019-12-15] MEDS ORDERED: Heparin 25,000 units/D5W 500 ML IV SCH (22:15)
[2019-12-15] MEDS ORDERED: Heparin 10,000 UNITS/ 10 ML VIAL SLOW IVP SCH (22:30)
[2019-12-15] MEDS ORDERED: Potassium Chloride 20 MEQ TAB PO SCH (23:00)
[2019-12-15 23:02] LABS: #Eosinphils 0.2 thou/uL (0.0-0.7); #Lymphocytes 1.6 thou/uL (1.20-3.40); #Monocytes 0.7 thou/uL (0.11-0.59); #Neutrophils 3.3 thou/uL (1.40-6.50); %Basophils 0.1 % (0.0-1.0); %Eosinophils 3.4 % (0.0-10.0); %Lymphocytes 27.8 % (21.0-51.0); %Monocytes 12.7 % (0.0-10.0); Hemoglobin 9.9 g/dL (12.0-16.0); Mean Corpuscular HGB CONC 33.9 g/dL (32.0-36.0); Mean Corpuscular Volume 91.3 fL (78.0-98.0); Mean Platelet Volume 8.4 fL (7.4-10.4); Platelet Count 120 thou/uL (130-400); RBC Distribution Width 13.7 % (11.5-14.5); Red Blood Cell (RBC) Count 3.19 mill/uL (4.20-5.40); White Blood Cell (WBC) Count 5.8 thou/uL (4.8-10.8)
[2019-12-15 23:35] LABS: ALT (SGPT) 11 U/L (8-55); AST (SGOT) 22 U/L (5-34); Albumin 3.5 g/dL (3.4-4.8); Alkaline Phosphatase 83 U/L (40-110); Anion Gap 20 mmol/L (10-20); BUN (Urea Nitrogen) 70 mg/dL (9.8-20.1); Bilirubin, Total 0.4 mg/dL (0.2-1.2); Calc. Creatinine Clearance 0 mL/min (70-130); Calcium 8.7 mg/dL (7.8-10.44); Carbon Dioxide 20 mmol/L (23-31); Chloride 100 mmol/L (98-107); Estimated GFR-MDRD 20; Globulin 3.1 g/dL (2.4-3.5); Glucose 106 mg/dL (83-110); Protein, Total 6.6 g/dL (6.0-8.3); Sodium 137 mmol/L (136-145)
[2019-12-15] MEDS ORDERED: clonazePAM 1 MG TAB PO PRN (23:37)
[2019-12-16 00:09] VITALS: BMI 33.7
[2019-12-16 00:31] LABS: Troponin I 0.069 ng/mL (< 0.028)
[2019-12-16 05:57] LABS: Creatinine, Urine 83.37 mg/dL (47-110)
[2019-12-16 05:59] LABS: PTT 196.9 sec (22.9-36.1)
[2019-12-16 06:03] LABS: Magnesium 2.3 mg/dL (1.6-2.6)
[2019-12-16 06:07] LABS: Troponin I 0.064 ng/mL (< 0.028)
--- NOTE | 2019-12-16 07:09 | PDOC.FM ---
- Subjective Subjective: Pt denies any CP this morning. She is slightly demented but is conversational. She again notes that she has had multiple stress tests and says one recently but cannot state how recent or what the result was. Says this was done somewhere in [place]. Does not recall her medications but does think her inderall was recently stopped and switched to something else. - Objective Vital Signs & Weight: Vital Signs (12 hours) Temp Pulse Resp BP Pulse Ox 12/16/19 04:45 98.4 F 91 12 128/74 95 12/16/19 00:00 98.0 F 87 12 111/53 L 100 Weight Weight 84.8 kg I&O: 12/15/19 12/16/19 12/17/19 06:59 06:59 06:59 Intake Total 120 Output Total 40 Balance 80 Result Diagrams: 12/15/19 22:47 12/16/19 07:58 Phys Exam - Physical Examination Constitutional: NAD HEENT: sclera anicteric Respiratory: clear to auscultation bilateral Cardiovascular: RRR, no significant murmur Gastrointestinal: soft, non-tender, no distention Musculoskeletal: no edema, pulses present follows commands, poor recent memory recall Skin: cap refill <2 seconds Deviation from normal: Very mild irritation of left groin along line of diaper Dx/Plan - Plan Plan: Unstable Angina - EKG is baseline from 2017 showing LBBB. - trop indeterminate x3, downtrending - Dr. Serrano, cardiology, consulted from ED - heparin drip, titrate per protocol - npo for potential cath today Hypokalemia - K 2.7 at outside facility, 3.0 on admission, will trend this morning - replace as needed CARISSA vs. CKD - pt reports baseline Cr is unknown. Here it is 2.49. Her last Cr in our system was 0.98 in 2018. - FeNa: 1.3% suggestive of intrinsic disease - Did receive IVF prior to studies which makes them less reliable Hypertrophic cardiomyopathy - per chart review. Pt reports she has had many cardiac tests recently but does not know what they were or the results. 2017 stress showed septal wall dyskinesis Anemia - normocytic, unsure if chronic - iron studies, B12, RBC folate pending Afib - stable, in NSR currently. - continue home meds except eliquis, will restart potentially after cath and heparin is stopped HTN -controlled, home meds Liver cyst -seen on CT, chronic and followed by PCP CODE: DNAR IVF: KVO Diet: HH, npo at midnight Ppx: Th heparin PCP: in [facility] dispo: inpatient, anticipate more than two midnights Plan: Will continue the anticoagulate pt with heparin drip per protocol. Per report pt may go to cath today. Will await cardiology recs until then. Will hold B-lester until we know she is not going to have a stress test today, plan to give if going to cath. Addendum - Attending - Attending Attestation Date/Time: 12/16/19 [id number] I personally evaluated the patient and discussed the management with Dr. Jameson. I agree with the History, Examination, Assessment and Plan documented above with any addition or exceptions noted below. Nonop, medical mgmt would be reasonable in light of age, comorbidities, and creatinine. Await cardiology opinion.
[2019-12-16 08:32] LABS: Anion Gap 20 mmol/L (10-20); BUN (Urea Nitrogen) 73 mg/dL (9.8-20.1); Calc. Creatinine Clearance 23 mL/min (70-130); Calcium 8.8 mg/dL (7.8-10.44); Carbon Dioxide 24 mmol/L (23-31); Chloride 99 mmol/L (98-107); Estimated GFR-MDRD 18; Glucose 127 mg/dL (83-110); Potassium 3.3 mmol/L (3.5-5.1); Sodium 140 mmol/L (136-145)
[2019-12-16] MEDS: Lactated Ringer's 1,000 ML IV SCH ×3 (08:41→20:54)
[2019-12-16] MEDS ORDERED: Propranolol HCl LA 80 MG CAP PO SCH (09:00)
[2019-12-16 11:49] LABS: SARS-CoV-2 MS2 Positive; SARS-CoV-2 N Gene Negative; SARS-CoV-2 S Gene Negative; SARS-CoV-2 by NAA Not Detected (NotDetected); SARS-CoV-2 orf1ab Negative
[2019-12-16] MEDS: Torsemide 20 MG TAB PO SCH ×2 (14:01→14:06)
[2019-12-16] MEDS: DULoxetine 30 MG CAP PO SCH ×2 (14:02→14:07)
[2019-12-16] MEDS: Spironolactone 25 MG TAB PO SCH (14:06)
[2019-12-16] MEDS: Acetaminophen 325 MG TAB PO PRN (14:07)
[2019-12-16] MEDS: Aspirin 81 mg Enteric Coated Tablet PO SCH (14:09)
[2019-12-16] MEDS: Multivit, Therapeutic 1 TAB PO SCH (14:09)
[2019-12-16] MEDS ORDERED: Heparin 25,000 units/D5W 500 ML IV SCH (15:45)
[2019-12-16] MEDS ORDERED: Heparin 10,000 UNITS/ 10 ML VIAL SLOW IVP SCH (16:15)
--- NOTE | 2019-12-16 17:16 | CON ---
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 She also had a pacemaker placed, which she states has been replaced once since then. This apparently is a [employer] pacemaker. She now presents complaining of chest pain for the last 2 weeks. This will be a pressure in the lower part of the sternum and will last hours at a time. This seems to be related to exertion and is relieved with rest. She has had a very minimally elevated troponin-I, which she has had in the past. PAST MEDICAL HISTORY: 1. Hypertrophic obstructive cardiomyopathy. 2. History of atrial fibrillation. 3. Resting tremor. 4. Liver cyst. PAST SURGICAL HISTORY: 1. Cholecystectomy. 2. Appendectomy. 3. Pacemaker placement. 4. Alcohol ablation of the septum. FAMILY HISTORY: Mother had coronary artery disease. MEDICATIONS: At home: 1. Eliquis 2.5 mg b.i.d. 2. Aspirin 81 nightly. 3. Clonazepam 1 mg nightly. 4. Diltiazem 180 daily. 5. Cymbalta 90 mg daily. 6. Multivitamin daily. 7. Nitrofurantoin 100 mg q.p.m. 8. Protonix 40 daily. 9. Mysoline 50 daily. 10. Propranolol 40 b.i.d. 11. Spironolactone 12.5 daily. 12. Torsemide 40 b.i.d. ALLERGIES: NITROGLYCERIN, LYRICA, SULFA, AND PLASTIC TAPE. SOCIAL HISTORY: She does not smoke or drink. REVIEW OF SYSTEMS: A 10-point review of systems is otherwise unremarkable. PHYSICAL EXAMINATION: VITAL SIGNS: Blood pressure 128/63 and pulse of 95. HEENT: PERRL. NECK: Supple. CHEST: Clear. CARDIAC: S1 and S2 are normal without any S3 or S4. There is a 1/6 systolic murmur in the left sternal border. ABDOMEN: Normal bowel sounds with some epigastric tenderness. EXTREMITIES: No clubbing, cyanosis, or edema. NEUROLOGIC: Grossly intact except for a resting tremor. SKIN: Warm and dry. LABORATORY DATA: EKG reveals normal sinus rhythm with left bundle-branch block, which apparently is an old finding. Hemoglobin 9.9, hematocrit 29.1, white count 5800, and platelets 140,000. INR 1.2. D-dimer 1.17. Sodium 140, potassium 3.3 , chloride 99, carbon dioxide 24, BUN 73, and creatinine 2.56. Troponin-I is 0.069. In 2018, she had troponin-I up to 0.140. COVID is negative. IMPRESSION: 1. Vnx-IT-exerwdtrq myocardial infarction, type 2. She has chronically elevated troponin-I, which has been higher in the past. She has many hours of chest discomfort, but has only minimally abnormal troponin-I, and I doubt that this is cardiac in nature. 2. Significant enlargement of hepatic cyst from 6.8 cm in 2017, up to 11 cm at the present time. 3. Chronic kidney disease versus acute kidney injury. 4. History of atrial fibrillation. 5. History of hypertrophic cardiomyopathy status post alcohol ablation in 2001. 6. S/P pacemaker. PLAN: Echocardiogram will be performed to reassess her hypertrophic cardiomyopathy. EKGs will be requested. Her pacemaker be interrogated. She will undergo adenosine Cardiolite testing for further evaluation. At the present time, I do not feel that this is cardiac in nature. I would be very hesitant to consider cardiac catheterization at this exact time with the patient on Eliquis and her current kidney disease. Job ID: [id number] [facility]
[2019-12-16] MEDS: Ondansetron PF 4 MG/2 ML Vial IVP PRN (20:44)
[2019-12-17] MEDS ORDERED: Lidocaine 2% Viscous Solution 10 ML, Aluminum & Magnesium Hydroxide 30 ML SSW SCH (01:00)
[2019-12-17 04:31] LABS: Hemoglobin 8.8 g/dL (12.0-16.0); Platelet Count 104 thou/uL (130-400)
[2019-12-17] MEDS: Lactated Ringer's 1,000 ML IV SCH (06:05)
--- NOTE | 2019-12-17 07:03 | PDOC.FM ---
- Subjective Subjective: Pt had episode of indigestion last night after she states she ate some fish she knows causes her problem ever since her stomach stapling procedure. This resolved with GI cocktail. States she continues to feel short of breath with ambulation. Otherwise is asx this morning. - Objective Vital Signs & Weight: Vital Signs (12 hours) Temp Pulse Resp BP Pulse Ox 12/17/19 05:00 98.6 F 79 20 107/53 L 100 12/17/19 00:00 89 20 120/75 100 12/16/19 20:00 99.1 F 89 20 121/52 L 99 Weight Weight 76 kg I&O: 12/16/19 12/17/19 12/18/19 06:59 06:59 06:59 Intake Total 120 3930 Output Total 40 300 Balance 80 3630 Result Diagrams: 12/17/19 03:51 12/17/19 07:13 Phys Exam - Physical Examination Constitutional: NAD HEENT: moist MMs, sclera anicteric coarse breath sounds throughout, short inspiratory phase Cardiovascular: RRR soft ejection 1/6 murmur along left sternal border Gastrointestinal: soft, non-tender Musculoskeletal: no edema, pulses present Neurological: non-focal, moves all 4 limbs Baseline tremor in upper extremities and lip smacking Psychiatric: normal affect, A&O x 3 Skin: no rash Dx/Plan - Plan Plan: Unstable Angina - Remains free of CP, did have indigestion last night that resolved with GI cocktail - DC'd heparin yesterday - Echo, adenosine stress, and pacemaker interrogation today - Cardiology, Dr. Heath, consulting - appreciate recs Hypokalemia - K 2.7 at outside facility, 3.0 on admission, will trend this morning - replace as needed CARISSA vs. CKD - Cr slowly improving, will continue to monitor - Avoid nephrotoxic rx Hypertrophic cardiomyopathy - per chart review. Pt reports she has had many cardiac tests recently but does not know what they were or the results. 2017 stress showed septal wall dyskinesis Anemia - normocytic, unsure if chronic - iron studies, B12 WNL Afib - stable, pacemaker, in NSR currently. - esteban resumed this morning - continue home meds HTN -controlled, home meds Liver cyst -seen on CT, chronic and followed by PCP CODE: DNAR IVF: LR @ 125 Diet: NPO pending stress Ppx: Eliquis PCP: in [place] dispo: inpatient, expect DC today vs tomorrow Plan: Seen by cards yesterday who recommended pacemaker interrogation, adenosine stress, and echo. DC'd therapeutic heparin. Chest pain remains resolved. CARISSA slowly improving with IVF. Addendum - Attending - Attending Attestation Date/Time: 12/17/19 2217 I personally evaluated the patient and discussed the management with Dr. Jameson. I agree with the History, Examination, Assessment and Plan documented above with any addition or exceptions noted below.
[2019-12-17 08:04] LABS: Anion Gap 16 mmol/L (10-20); BUN (Urea Nitrogen) 65 mg/dL (9.8-20.1); Calc. Creatinine Clearance 23 mL/min (70-130); Calcium 8.5 mg/dL (7.8-10.44); Carbon Dioxide 25 mmol/L (23-31); Chloride 99 mmol/L (98-107); Estimated GFR-MDRD 20; Glucose 128 mg/dL (83-110); Potassium 3.1 mmol/L (3.5-5.1); Sodium 137 mmol/L (136-145)
[2019-12-17] MEDS ORDERED: Potassium Chloride 20 MEQ TAB PO SCH (08:45)
[2019-12-17] MEDS ORDERED: Apixaban 2.5 MG TAB PO SCH (09:00)
[2019-12-17] MEDS ORDERED: Regadenoson 0.4 MG/5 ML SYRINGE ONE (11:05)
[2019-12-17 13:37] LABS: Folate,Hemolysate >620.0 ng/mL (Not Estab.); Hematocrit 28.9 % (34.0-46.6); RBC Folate Test Component Greater than 2145 ng/mL (>498)
[2019-12-17] MEDS: Torsemide 20 MG TAB PO SCH ×2 (13:52→14:33)
--- NOTE | 2019-12-17 13:56 | NM ---
EXAM: CARDIAC SPECT HISTORY: Chest pain, ablation, DVT, pacemaker, hypertension TECHNIQUE: A myocardial perfusion scan was performed using the single isotope 1 day protocol with jie hnetium 99m sestamibi. [10 mCi] was injected intravenously for the rest exam followed by 30 mCi for the stress study. Pharmacologic stress with Lexiscan was monitored and interpreted by HUY Sotelo FINDINGS: No fixed or reversible defects are seen. Gated SPECT LVEF: 69% Wall motion exam: Normal IMPRESSION: No evidence of reversible ischemia.
[2019-12-17] MEDS: Multivit, Therapeutic 1 TAB PO SCH (14:33)
[2019-12-17] MEDS: Aspirin 81 mg Enteric Coated Tablet PO SCH (14:33)
[2019-12-17] MEDS: DULoxetine 30 MG CAP PO SCH (14:33)
[2019-12-17] MEDS: Spironolactone 25 MG TAB PO SCH (14:34)
[2019-12-17] MEDS: Acetaminophen 325 MG TAB PO PRN (17:57)
[2019-12-17 18:38] LABS: Anion Gap 17 mmol/L (10-20); BUN (Urea Nitrogen) 62 mg/dL (9.8-20.1); Calc. Creatinine Clearance 24 mL/min (70-130); Calcium 8.7 mg/dL (7.8-10.44); Carbon Dioxide 24 mmol/L (23-31); Chloride 101 mmol/L (98-107); Estimated GFR-MDRD 21; Glucose 149 mg/dL (83-110); Potassium 3.4 mmol/L (3.5-5.1); Sodium 139 mmol/L (136-145)
[2019-12-17 22:54] VITALS: TEMP 98.6
[2019-12-18] MEDS: Acetaminophen 325 MG TAB PO PRN (00:14)
[2019-12-18 04:50] LABS: #Eosinphils 0.1 thou/uL (0.0-0.7); #Lymphocytes 0.9 thou/uL (1.20-3.40); #Monocytes 0.4 thou/uL (0.11-0.59); %Basophils 0.7 % (0.0-1.0); %Eosinophils 3.4 % (0.0-10.0); %Lymphocytes 25.6 % (21.0-51.0); %Neutrophils 58.3 % (42.0-75.0); Hemoglobin 8.2 g/dL (12.0-16.0); Mean Corpuscular HGB CONC 32.5 g/dL (32.0-36.0); Mean Corpuscular Volume 92.4 fL (78.0-98.0); Mean Platelet Volume 9.2 fL (7.4-10.4); Platelet Count 109 thou/uL (130-400); RBC Distribution Width 14.1 % (11.5-14.5); Red Blood Cell (RBC) Count 2.74 mill/uL (4.20-5.40); White Blood Cell (WBC) Count 3.3 thou/uL (4.8-10.8)
--- NOTE | 2019-12-18 06:09 | PDOC.FM ---
- Subjective Subjective: Pt feeling better again today. Is very hopeful to go home this morning. Her appetite is good and feels that she is getting around a little better as well. States she has daughter to assist her at home. Discussed f/u for liver cyst as outpt. - Objective Vital Signs & Weight: Vital Signs (12 hours) Temp Pulse Resp BP Pulse Ox 12/17/19 20:00 98 12/17/19 19:20 98.6 F 95 20 124/60 98 Weight Weight 83.5 kg I&O: 12/16/19 12/17/19 12/18/19 06:59 06:59 06:59 Intake Total 120 4170 960 Output Total 40 900 750 Balance 80 3270 210 Result Diagrams: 12/18/19 03:43 12/18/19 07:12 Phys Exam - Physical Examination Constitutional: NAD HEENT: moist MMs, sclera anicteric Respiratory: clear to auscultation bilateral Cardiovascular: RRR Gastrointestinal: soft, non-tender Musculoskeletal: no edema, pulses present Neurological: moves all 4 limbs Psychiatric: normal affect, A&O x 3 Skin: cap refill <2 seconds Dx/Plan - Plan Plan: Unstable Angina - Remains free of CP - Echo: EF 60-65%, diastolic dysfunction, moderate mitral regurg - Cardiolite / adenosine stress: no fixed or reversible defects - Cardiology, Dr. Heath, consulting - appreciate recs Hypokalemia - K 3.4 last night, again replacing this morning - will increase home dose on DC CARISSA vs. CKD - Cr slowly improving, will continue to monitor - Avoid nephrotoxic rx Anemia - stable - normocytic, unsure if chronic - iron studies, B12 WNL Afib - stable, pacemaker, in NSR currently. - eliquis resumed - continue home meds HTN -controlled, home meds Liver cyst -seen on CT, chronic -Dr. Sánchez consulted by Dr. Heath - states is slightly increased in size, can f/u as outpt for monitoring CODE: DNAR IVF: LR @ 125 Diet: NPO pending stress Ppx: Jani PCP: [place] dispo: inpatient, expect DC today vs tomorrow Plan: Had stress that was negative. Echo only significant for mitral regurg that is graded as moderate. Potassium levels are coming up and renal function improving. PT has recommended placement - discussed this with the patient who prefers to return home with assistance of daughter. Dr. Sánchez and Dr. Heath agreeable with DC today. Addendum - Attending - Attending Attestation Date/Time: 12/18/19 9930 I personally evaluated the patient and discussed the management with Dr. Jameson. I agree with the History, Examination, Assessment and Plan documented above with any addition or exceptions noted below. F/u liver cyst in clinic.
[2019-12-18] MEDS ORDERED: Potassium Chloride 20 MEQ TAB PO SCH (06:45)
[2019-12-18 07:39] LABS: Anion Gap 12 mmol/L (10-20); BUN (Urea Nitrogen) 57 mg/dL (9.8-20.1); Calc. Creatinine Clearance 26 mL/min (70-130); Calcium 8.9 mg/dL (7.8-10.44); Carbon Dioxide 29 mmol/L (23-31); Chloride 98 mmol/L (98-107); Estimated GFR-MDRD 22; Glucose 143 mg/dL (83-110); Potassium 3.2 mmol/L (3.5-5.1); Sodium 136 mmol/L (136-145)
[2019-12-18 09:02] VITALS: BP 142/56
--- NOTE | 2019-12-18 10:19 | CON ---
DATE OF CONSULTATION: 12/17/2019 REASON FOR CONSULTATION: Enlarging liver cyst. HISTORY OF PRESENT ILLNESS: Ms. Shefali Combs is a very pleasant 84-year-old female, who lives in [place]. She does see Dr. Umana, who is her primary care doctor. The patient was hospitalized because of chest pain and was seen by Dr. Tobin Heath. The patient had stress testing done which came back negative. Her chest pain is no more. The patient had abdominal CAT scan, noncontrast, which revealed a large right hepatic cyst. The cyst size has gone from 7 cm to 11 cm at the present time. The patient had no abdominal pain, nausea, or vomiting. She eats very well. The patient had no evidence of GI symptoms except for chest pain, which she was having before. Her liver function tests are actually normal. Bilirubin is 0.4, AST 22, ALT 11, alkaline phosphatase 83. Noncontrast abdominal CAT scan shows liver cyst and also there is some dilation of common bile duct and slight dilation of the left intrahepatic ducts. The cyst is in the right lobe of the liver and in the left lobe. The patient's bowel movements are fairly regular. There is no history of any dysphagia or odynophagia. No history of rectal bleeding. She does have mild anemia on admission and is slowly getting worse. Admitting CBC, WBC 5800, hemoglobin 9.9, hematocrit 29.1. Today they are dropping down to 8.8 and 26.6. The platelet count is also slightly low at 120 on admission, today it is 104. The patient has no prior history of liver disease. No prior history of anemia or any GI bleeding. She had no relevant history. ALLERGIES: NITROGLYCERIN, LYRICA, SULFA, AND PLASTIC TAPE. SOCIAL HISTORY: She does not smoke or drink alcohol. MEDICAL ILLNESSES: 1. Wib-BX-wyoprfsqw myocardial infarction, type 2. 2. Chronic kidney disease. 3. History of atrial fibrillation. 4. History of hypertrophic cardiomyopathy, status post alcohol ablation in 2001, which was done in [place]. 5. Pacemaker placement. PAST SURGICAL HISTORY: 1. Gastric stapling in 1982. 2. Hiatal hernia repair. 3. Pacemaker placement. 4. Other surgeries include appendectomy. MEDICATIONS AT HOME: Include; 1. Aspirin. 2. Clonazepam. 3. Diltiazem. 4. Cymbalta. 5. Multivitamins. 6. Nitrofurantoin. 7. Protonix. 8. Mysoline. 9. Propranolol. 10. Spironolactone. 11. Eliquis. 12. Torsemide 40 p.o. twice a day. FAMILY HISTORY: Mother with coronary artery disease. No family history of any cancer. REVIEW OF SYSTEMS: CONSTITUTIONAL: No history of any weight loss. No fever or chills. Has good appetite. HEAD: No chronic headache. No dizziness. EYES: No diplopia. No impaired vision. EARS: No hearing loss. NOSE: No nosebleed or any drainage. THROAT: No sore throat. No dysphagia. LUNGS: No chronic coughing, hemoptysis, or dyspnea. CARDIOVASCULAR: Had chest pain and had negative cardiac stress testing. No history of any dyspnea, orthopnea, or PND. No palpitation. GI: No abdominal pain. No nausea, no vomiting. No rectal bleeding. No melena. : No dysuria or hematuria. Musculoskeletal and neuroendocrine, nonrelevant. PHYSICAL EXAMINATION: GENERAL: Appears very comfortable. She is obese. She is awake, alert, and oriented to time and place and person. VITAL SIGNS: Afebrile. Pulse is 97, blood pressure is 124/56. HEENT: Conjunctivae clear. NECK: Supple. CARDIOVASCULAR: Normal heart sounds. LUNGS: Clear to auscultation. ABDOMEN: She has scar over the right upper quadrant and also midline. Abdomen is mildly distended. Abdomen is nontender. No organomegaly. No masses. Bowel sounds are normal. EXTREMITIES: Reveal no edema. LABORATORY DATA: On admission showed mild anemia and also mild thrombocytopenia. The admitting CBC; WBC 5800, hemoglobin 9.9, hematocrit 29.1, MCV 91.3, and platelet count 120,000, dropping to 104,000 today. Hemoglobin dropping to 8.8, hematocrit to 26.6. Liver function tests are normal, bilirubin is 0.4, AST 22, ALT 11, alkaline phosphatase 33. Lytes; potassium slightly low at 3, bicarb is 20, BUN is 70, creatinine 2.37, magnesium 2.6. An abdominal CAT scan noncontrast shows large liver cyst over the right hepatic lobe and also dilation of CBD. There is also slight dilation of the left intrahepatic ducts, possibly from the extrinsic compression of the liver cyst. CLINICAL IMPRESSION: 1. Liver cysts, asymptomatic. She does not need intervention at the present time. 2. Mildly dilated intrahepatic ducts on the left side, most likely from the compression of the liver cyst. Liver function tests are normal. 3. Anemia and thrombocytopenia, etiology unclear. 4. Atrial fibrillation. 5. Status post pacemaker implant. 6. Status post ablation for hypertrophic cardiomyopathy 18 years ago. RECOMMENDATIONS: 1. Liver not causing any problem and she is totally asymptomatic. There is no intervention as of the present time. 2. Anemia, thrombocytopenia, etiology unclear. Recommendation, obtain stool for occult blood. Follow CBC. 3. If her liver function tests go up in the future, she will need probably some ERCP. For the time being, she does not need any significant intervention at present time. Job ID: [id number]
[2019-12-18] MEDS: Ondansetron PF 4 MG/2 ML Vial IVP PRN (10:27)
[2019-12-18] MEDS: Aspirin 81 mg Enteric Coated Tablet PO SCH (10:28)
[2019-12-18] MEDS: DULoxetine 30 MG CAP PO SCH (10:28)
[2019-12-18] MEDS: Multivit, Therapeutic 1 TAB PO SCH (10:28)
[2019-12-18] MEDS: Torsemide 20 MG TAB PO SCH (10:29)
[2019-12-18] MEDS: Spironolactone 25 MG TAB PO SCH (10:29)
--- NOTE | 2019-12-19 05:48 | DIS ---
DATE OF ADMISSION: 12/15/2019 DATE OF DISCHARGE: 12/18/2019 ADMITTING ATTENDING: Missy Moscoso MD DISCHARGE ATTENDING: Puneet Chase MD RESIDENT: Abner Jameson DO. CONSULTS: 1. Tobin Heath MD, cardiology. 2. Nicolle Turner MD, gastroenterology. PROCEDURES: None. IMAGING: Chest, abdomen, and pelvis CT on 12/15/2019, impression: No aortic aneurysm. Significant enlargement in the cyst/lesion involving the right lobe of the liver and medial segment of the left lobe. Postop changes of the stomach. Nonobstructing right renal calculus. No evidence of aortic aneurysm. Echocardiogram on 12/17/2019. Impression: EF of 60% to 65%, diastolic dysfunction, moderate mitral regurgitation, [id number] tricuspid regurgitation. Nuclear stress test: Impression: No evidence of fixed or reversible ischemia. PRIMARY DIAGNOSES: 1. Unstable angina. 2. Acute kidney injury on chronic kidney disease. 3. Liver cysts. SECONDARY DIAGNOSES: 1. Anemia. 2. Atrial fibrillation. 3. Hypertension. 4. Hypokalemia. DISCHARGE MEDICATIONS: 1. Diltiazem 180 mg daily. 2. Propranolol 40 mg b.i.d. 3. Pantoprazole 40 mg daily. 4. Spironolactone 12.5 mg daily. 5. Torsemide 40 mg b.i.d. 6. Aspirin 81 mg h.s. 7. Primidone 50 mg daily. 8. Eliquis 2.5 mg b.i.d. 9. Duloxetine 90 mg daily. 10. Clonazepam 1 mg h.s. 11. Nitrofurantoin 100 mg p.o. q.p.m. 12. K-Dur 20 mEq b.i.d. HISTORY OF PRESENT ILLNESS AND HOSPITAL COURSE: An 84-year-old female presented to emergency department complaining of substernal chest pain that has been going on for the entire day. She had a CT in the ER to rule out abdominal aortic aneurysm. On CT, they noted a large left hepatic lobe cyst. She had troponins drawn. It remained negative x3. The patient initially had difficulty controlling her chest pain, which did not improve with nitroglycerin, but eventually improved with several doses of morphine. After that, pain completely resolved and did not return. Dr. Heath with Cardiology was consulted and performed an echocardiogram, pacemaker interrogation, and stress test. All of these studies showed no acute findings. Dr. uTrner with GI was consulted due to changes of the left hepatic liver cyst. He stated that no acute intervention was needed and that she needed to follow up as an outpatient. On the day of discharge, the patient remained free of chest pain and was eager to return home. She stated that she has her daughter are available at home to assist her and agreed to follow up with her PCP regarding her liver cyst and chronic disease management. Throughout her stay, she had continuous problem with low potassium so we recommended increasing her home dose of potassium to 20 mEq twice daily. DISCHARGE INSTRUCTIONS: 1. Location: Home. 2. Diet: Heart healthy. 3. Activity: As tolerated. 4. Followup: Follow up with PCP within 7 days. Gastroenterology, Dr. Turner , within 2 months. Job ID: [id number] [facility]
--- NOTE | 2019-12-19 06:57 | PQF ---
CLINICAL DOCUMENTATION CLARIFICATION FORM: Dear : Puneet Chase Date / Time: 12/19/2019 9902 Please exercise your independent, professional judgment in responding to the clarification form. Clinical indicators are provided on the bottom of this form for your review Please check appropriate box(es) to clarify if the following diagnosis has been ruled in our ruled out: NSTEMI type 2 [ ] Ruled in diagnosis If NSTEMI type 2 Ruled In, can you please identify the etiology if due to: [ ] CARISSA [ ] LBBB [ ] Afib [ ] Other diagnosis [ ] Unable to determine [ ] Ruled out diagnosis [ ] Improving [ ] Cannot rule out diagnosis [ x ] Other diagnosis defer to cardiology [ ] Unable to determine Physician Signature: Date/Time: For continuity of documentation, please document condition throughout progress notes and discharge summary. Thank You. To be completed by CDI/Coding staff for physician review: Present Clinical Indicators - Signs / Symptoms / Labs Results and Location in Medical Record [X] BP 111/53, Pulse 98, Resp 18, Temp 97.7 Vital signs 12/15 [X] CK-MB 1.1, Troponin I 0.057; 0.069; 0.064, Creatinine 2.37, BUN 70 Laboratory 12/14 [X] EKG with ST depression, LBBB [X] She has been having exertional CP for the past two weeks H&P p1 12/14 Dr Tellez [X] Unstable Angina H&P p1 12/14 Dr Tellez [X] Non ST Elevation [place] type 2, she chronically elevated troponin Consult Dr Rudd 12/15 Present Risk Factors Results and Location in Medical Record [X] 84 year-old Female H&P p1 12/14 Dr Tellez [X] CHF [X] Cardiomoypathy [X] Afib [X] CARISSA vs CKD Present Treatments Results and Location in Medical Record [X] IV Lactated Ringers 1L JUN 15 [X] IV Hepatin 75013 units JUN 15 [X] Aspirin 81 mg oral JUN 15 [X] Oxygen 3L Respiratory Panel 12/15 [X] TTE Dr Rudd 12/16 [X] Stress test Imaging Dr Lee 12/16 [X] EKG ED notes p10 12/14 [X] Cardiology Consult Consult Dr Rudd 12/15 CDS/Ramp Attendant Signature: Helene Arenas Phone #: ext [phone] Date/Time: 12/19/2019 0655 This is a permanent part of the Medical Record [facility]
--- NOTE | 2019-12-19 20:34 | PQF ---
CLINICAL DOCUMENTATION CLARIFICATION FORM: Dear : Tobin Heath Date / Time: 12/19/20192032 Please exercise your independent, professional judgment in responding to the clarification form. Clinical indicators are provided on the bottom of this form for your review Please check appropriate box(es) to clarify if the following diagnosis has been ruled in our ruled out: NSTEMI type 2 [ x ] Ruled in diagnosis If NSTEMI type 2 Ruled In, can you please identify the etiology if due to: [ x ] CARISSA [ ] LBBB [ ] Afib [ ] Other diagnosis [ ] Unable to determine [ ] Ruled out diagnosis [ ] Improving [ ] Cannot rule out diagnosis [ ] Other diagnosis [ ] Unable to determine Physician Signature: Date/Time: For continuity of documentation, please document condition throughout progress notes and discharge summary. Thank You. To be completed by CDI/Coding staff for physician review: Present Clinical Indicators - Signs / Symptoms / Labs Results and Location in Medical Record [X] BP 111/53, Pulse 98, Resp 18, Temp 97.7 Vital signs 12/15 [X] CK-MB 1.1, Troponin I 0.057; 0.069; 0.064, Creatinine 2.37, BUN 70 Laboratory 12/14 [X] EKG with ST depression, LBBB [X] She has been having exertional CP for the past two weeks H&P p1 12/14 Dr Tellez [X] Unstable Angina H&P p1 12/14 Dr Tellez [X] Non ST Elevation [place] type 2, she chronically elevated troponin Consult Dr Rudd 12/15 Present Risk Factors Results and Location in Medical Record [X] 84 year-old Female H&P p1 12/14 Dr Tellez [X] CHF [X] Cardiomoypathy [X] Afib [X] CARISSA vs CKD Present Treatments Results and Location in Medical Record [X] IV Lactated Ringers 1L JUN 15 [X] IV Hepatin 43181 units JUN 15 [X] Aspirin 81 mg oral JUN 15 [X] Oxygen 3L Respiratory Panel 12/15 [X] TTE Dr Rudd 12/16 [X] Stress test Imaging Dr Lee 12/16 [X] EKG ED notes p10 12/14 [X] Cardiology Consult Consult Dr Rudd 12/15 CDS/Server Developer Signature: Helene Arenas Phone #: [phone] Date/Time: 12/19/20192032 This is a permanent part of the Medical Record [facility]
--- NOTE | 2019-12-20 16:36 | EKG ---
Test Reason : CP Blood Pressure : / mmHG Vent. Rate : 085 BPM Atrial Rate : 085 BPM P-R Int : 136 ms QRS Dur : 150 ms QT Int : 490 ms P-R-T Axes : 059 -18 142 degrees QTc Int : 583 ms Normal sinus rhythm Left bundle branch block Abnormal ECG Confirmed by VINCE LUTZ ([id number]), general expeditor VINCENT GUEVARA ([id number]) on 12/20/2019 4:35:42 PM Referred By: Confirmed By:VINCE LUTZ
== END 2019-12-18 11:45 | disposition home or self-care (01) | DRG 683 ==
LOC: ERS 19:47 → 2NO 22:06
PROVIDERS: ADMIT Student in an Organized Health Care Education/Training Program; ATTEND Student in an Organized Health Care Education/Training Program
PROC: 4B02XSZ Measurement of Cardiac Pacemaker, External Approach (ICD-10-PCS; principal; 2019-12-16)
DX: N17.9 Acute kidney failure, unspecified (principal); I20.0 Unstable angina; I42.2 Other hypertrophic cardiomyopathy; I13.0 Hypertensive heart and chronic kidney disease with heart failure and stage 1 through stage 4 chronic kidney disease, or unspecified chronic kidney disease; Z20.828 Contact with and (suspected) exposure to other viral communicable diseases; E87.6 Hypokalemia; Z66 Do not resuscitate; K76.89 Other specified diseases of liver; I48.91 Unspecified atrial fibrillation; I50.9 Heart failure, unspecified; D63.1 Anemia in chronic kidney disease; G25.2 Other specified forms of tremor; D69.6 Thrombocytopenia, unspecified; I34.0 Nonrheumatic mitral (valve) insufficiency; I44.7 Left bundle-branch block, unspecified; N18.3 Chronic kidney disease, stage 3 (moderate); F32.9 Major depressive disorder, single episode, unspecified; F41.9 Anxiety disorder, unspecified; Z86.718 Personal history of other venous thrombosis and embolism; Z90.49 Acquired absence of other specified parts of digestive tract; I25.2 Old myocardial infarction; Z79.899 Other long term (current) drug therapy; Z79.82 Long term (current) use of aspirin; Z88.2 Allergy status to sulfonamides; Z88.8 Allergy status to other drugs, medicaments and biological substances; Z91.048 Other nonmedicinal substance allergy status; Z95.0 Presence of cardiac pacemaker; Z79.01 Long term (current) use of anticoagulants
CPT/HCPCS: 36415; 36416; 71250; 74177; 78452; 80048; 82565; 82570; 82607; 82728; 82747; 83540; 83550; 83735; 84300; 84484; 85014; 85018; 85025; 85049; 85610; 85730; 87635; 93005; 93017; 93306; 96361; 96374; 96375; A9500; J1644; J2270; J2405; J2785; U0003